=== PATIENT | female | born 1945 | race Caucasian/White ===

== ENCOUNTER 2020-05-27 08:27 | Outpatient (REF) | payer MEDICARE, SELFPAY ==
--- NOTE | 2020-05-27 | XR_ITS ---
EXAMINATION: XR CHEST 2 VIEWS CLINICAL INFORMATION: History of pulmonary carcinoid tumor. COMPARISON: CT chest dated 02/29/2020 and the chest radiographs dated 11/12/2018. TECHNIQUE: Frontal and lateral views of the chest were obtained. FINDINGS: The heart, great vessels, pulmonary vasculature and mediastinum are stable. The heart size is least top normal. The lungs show no focal infiltrate, effusion or pneumothorax. There is no congestive heart failure. There appears to been a partial right lobectomy, with upper lung field chain stable noted. The previously seen right upper lobe nodule is not redemonstrated. There is now tenting of the right hemidiaphragm, with volume loss. There is no acute osseous abnormality. IMPRESSION: 1. No focal infiltrate or congestive heart failure is seen. 2. There appears to have been a prior partial right upper lobectomy. The previously seen right upper lobe nodule is not presently noted. 3. No new mass, nodule or infiltrate is seen. There is no hilar lymphadenopathy seen.
== END 2020-05-27 08:28 | disposition home or self-care (01) ==
LOC: HO.XRAY 08:27
PROVIDERS: PCP Internal Medicine; Visit Provider Surgery
DX: Z48.89 Encounter for other specified surgical aftercare (principal); D3A.090 Benign carcinoid tumor of the bronchus and lung
CPT/HCPCS: 71046; 99211

== ENCOUNTER 2020-11-25 07:03 | Outpatient (REF) | payer MEDICARE, SELFPAY ==
--- NOTE | ~2020-11-25 | CT_ITS ---
EXAMINATION: CT CHEST WITHOUT CONTRAST CLINICAL INFORMATION: Benign carcinoid tumor of the bronchus. COMPARISON: Chest 05/27/2020. CT chest 02/29/2020 TECHNIQUE: Multidetector volumetric CT imaging of the chest was done. Axial MIP volume rendering provided. Sagittal and coronal reformatted images were obtained. This CT examination was performed using dose optimization techniques as appropriate, variously including the following: *Automated exposure control *Adjustment of mA and/or kV according to patient size (this includes techniques or standardized protocols for targeted exams where dose is matched to indication/reason for exam; i.e. extremities or head) *Use of iterative reconstruction technique DLP: 114 mGy-cm FINDINGS: INTERN ARCHITECT: Well-inflated lungs. LUNGS: The lungs are well inflated with bilateral apical parenchymal scarring and apical pleural thickening. There are postsurgical sutures along the right upper lobe, new since the previous study. The previously seen right upper lobe nodule has been resected. There is a 1.40 cm ill-defined density in the right upper lobe (axial image 12/4), likely sequela of surgery. There are mild atelectatic changes in the left upper lobe anterior segment, bilateral lower lobes. MEDIASTINUM: The thyroid lobes are symmetrical and normal. The central trachea and the bronchi are widely patent. Heart size and the great vessels are normal caliber. No abnormal-sized mediastinal lymph nodes are seen. There is a small pericardial effusion. PLEURA: There is no pleural effusion. No pleural mass or thickening. AXILLAE: There are small shotty lymph nodes visualized. UPPER ABDOMEN: The visualized liver, spleen, pancreas and bilateral adrenal glands are unremarkable. OSSEOUS STRUCTURES: There is exaggerated thoracic kyphosis with moderate spondylosis throughout the dorsal spine. There is grade 1 anterolisthesis of T4 over T5 with mild dextroscoliosis. CT/CT chest wo con IMPRESSION: Interval right upper lobe nodular resection with right upper lobe postsurgical changes. There is an irregular density in the right upper lobe, likely post surgical, with central sutures in place. Atelectatic changes in both lower lobes and left upper lobe. No abnormal mediastinal or axillary adenopathy. Mild dextroscoliosis with degenerative disc changes and spondylosis.
== END 2020-11-25 07:04 | disposition home or self-care (01) ==
LOC: HO.CT 07:03
PROVIDERS: PCP Nurse Practitioner Family; Visit Provider Surgery
DX: D3A.090 Benign carcinoid tumor of the bronchus and lung (principal)
CPT/HCPCS: 71250

== ENCOUNTER 2021-06-16 08:21 | Outpatient (REF) | payer MEDICARE, SELFPAY ==
--- NOTE | ~2021-06-16 | CT_ITS ---
EXAMINATION: CT CHEST WITHOUT CONTRAST CLINICAL INFORMATION: Benign carcinoid tumor. Status post surgical resection. For follow-up. COMPARISON: CT of the chest done on 02/29/2020 and 11/25/2020. TECHNIQUE: Multidetector volumetric CT imaging of the chest was done. Axial MIP volume rendering provided. Sagittal and coronal reformatted images were obtained. This CT examination was performed using dose optimization techniques as appropriate, variously including the following: *Automated exposure control *Adjustment of mA and/or kV according to patient size (this includes techniques or standardized protocols for targeted exams where dose is matched to indication/reason for exam; i.e. extremities or head) *Use of iterative reconstruction technique DLP: 95.9 mGy-cm FINDINGS: BUSINESS CENTER MANAGER: Unremarkable. LUNGS: Previously documented nodular opacity along the suture line, specifically along the inferior medial posterior aspect of the suture line currently measures approximately 1.0 cm at its maximum dimension (128:7) appears stable. Linear pleuroparenchymal opacities are noted at both lung bases, consistent with hypoventilatory, atelectatic changes versus pleural parenchymal scar. The tracheobronchial tree is patent. MEDIASTINUM: There are no pathologically enlarged mediastinal and/or hilar lymphadenopathy. Atherosclerotic coronary artery calcifications are present, unchanged. Trace amount of simple appearing pericardial effusion is noted, unchanged. PLEURA: There is no pleural effusion. No pleural mass or thickening. AXILLA: No lymphadenopathy. UPPER ABDOMEN: Unremarkable. OSSEOUS STRUCTURES: No suspicious focal lesion. CT/CT chest wo con IMPRESSION: Stable postsurgical changes are noted within the chest, unchanged since 11/25/2020. Clinically, previously identified approximately 1 cm nodular density along the inferior medial posterior aspect of the suture line in the right upper appear unchanged. Note is also made of stable simple appearing trace pericardial effusion.
== END 2021-06-16 08:22 | disposition home or self-care (01) ==
LOC: HO.CT 08:21
PROVIDERS: PCP Nurse Practitioner Family; Visit Provider Surgery
DX: D3A.090 Benign carcinoid tumor of the bronchus and lung (principal); K44.0 Diaphragmatic hernia with obstruction, without gangrene
CPT/HCPCS: 71250

== ENCOUNTER 2021-12-29 07:50 | Outpatient (REF) | payer MEDICARE, SELFPAY ==
--- NOTE | ~2021-12-29 | CT_ITS ---
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 Axial MIP volume rendering provided. Sagittal and coronal reformatted images were obtained. This CT examination was performed using dose optimization techniques as appropriate, variously including the following: *Automated exposure control *Adjustment of mA and/or kV according to patient size (this includes techniques or standardized protocols for targeted exams where dose is matched to indication/reason for exam; i.e. extremities or head) *Use of iterative reconstruction technique DLP: 89 mGy-cm FINDINGS: LUNGS: There are postsurgical changes to the right hemithorax following right upper lobe lobectomy. There is some soft tissue thickening seen adjacent to the surgical staple line in the right lower lobe the right lung apex that is stable, axial image 119 series 7. This area measures approximately 7 x 12 mm.. There is a small 3 mm peripheral or subpleural left lower lobe nodule adjacent to the fissure axial image 237 series 7 probably representing a subpleural lymph node that is stable. There is subsegmental atelectasis at the left lung base in the inferior segment of the lingula MEDIASTINUM: The heart is upper normal in size. There is coronary artery calcification. There is a small pericardial effusion that is stable. The thoracic aorta is tortuous but normal caliber. There are no enlarged hilar or mediastinal lymph nodes. The visualized thyroid gland is normal. PLEURA: There is no pleural effusion. No pleural mass or thickening. AXILLA: No lymphadenopathy. UPPER ABDOMEN: Unremarkable. OSSEOUS STRUCTURES: There is a thoracolumbar scoliosis. There are degenerative changes of the spine. There is an old T12 vertebral body fracture that is stable and CT/CT chest wo con IMPRESSION: Stable chest CT exam. Postsurgical changes to the right upper lobe with increased soft tissue surrounding the surgical staple line at the right lung apex appear unchanged. Fleischner guidelines were followed.
== END 2021-12-29 07:51 | disposition home or self-care (01) ==
LOC: HO.CT 07:50
PROVIDERS: PCP Family Medicine; Visit Provider Surgery
DX: D3A.090 Benign carcinoid tumor of the bronchus and lung (principal); K44.0 Diaphragmatic hernia with obstruction, without gangrene
CPT/HCPCS: 71250; 99212

== ENCOUNTER 2022-07-06 07:47 | Outpatient (REF) | payer MEDICARE, SELFPAY ==
--- NOTE | ~2022-07-06 | CT_ITS ---
EXAMINATION: CT CHEST WITHOUT CONTRAST CLINICAL INFORMATION: Benign carcinoid tumor of lung COMPARISON: Previous chest CT most recent December 2021 TECHNIQUE: Multidetector volumetric CT imaging of the chest was done. Axial MIP volume rendering provided. Sagittal and coronal reformatted images were obtained. This CT examination was performed using dose optimization techniques as appropriate, variously including the following: *Automated exposure control *Adjustment of mA and/or kV according to patient size (this includes techniques or standardized protocols for targeted exams where dose is matched to indication/reason for exam; i.e. extremities or head) *Use of iterative reconstruction technique DLP: 98 mGy-cm FINDINGS: DEPARTMENT ADMINISTRATOR: LUNGS: Postsurgical changes from right upper lobe lobectomy. There is soft tissue thickening adjacent to the surgical staple line the right lung apex that is stable. There is a small 3 mm peripheral or subpleural left lower lobe nodule adjacent to the pleural fissure axial image 257 series 7 that is stable. There is scarring or subsegmental atelectasis at the lung bases. No endobronchial or endotracheal lesion. MEDIASTINUM: No enlarged hilar or mediastinal lymph nodes. Slightly enlarged heart. Moderate coronary artery calcification. Small stable pericardial effusion. Visualized thyroid gland is normal. CORONARY ARTERY CALCIFICATION: Moderate PLEURA: There is no pleural effusion. No pleural mass or thickening. AXILLA: No lymphadenopathy. UPPER ABDOMEN: Unremarkable. OSSEOUS STRUCTURES: Scoliosis and degenerative changes of the spine. Old stable T12 vertebral body compression fracture. CT/CT chest wo IV con IMPRESSION: Stable chest CT exam. Fleischner guidelines were followed.
== END 2022-07-06 07:48 | disposition home or self-care (01) ==
LOC: HO.CT 07:47
PROVIDERS: PCP Family Medicine; Visit Provider Surgery
DX: D3A.090 Benign carcinoid tumor of the bronchus and lung (principal)
CPT/HCPCS: 71250; 99212